=== PATIENT | female | born 1940 | race Caucasian/White ===

== ENCOUNTER → 2016-12-28 | Outpatient (CLI) | payer MEDICARE, OTHER ==
[~2016-12-28] MED LIST: ALAVERT10 MG/TAB PO; ALBUTEROL17 GM INH; ALBUTEROL20 ml INH; ALDACTAZIDE 25/1 TA1; ALDACTAZIDE 25/1 TAB; ALLEGRA ALLERG180 MG PO; ALLEGRA PO; ASPIRIN; ASPIRIN EC81 M1 PO; ASPIRIN325 M1 PO; ASPIRIN81 MG PO; B COMPLEX1 TAB PO; BENTYL20 M1; BREO ELLIPTA 11 EACH IH; CALTRATE 600 +1 EACH PO; CALTRATE 600 W-1 TAB PO; CALTRATE PLUS T1 TAB; CALTRATE-600/VI1 TA1 PO; CLARITIN; CLARITIN10 M1 PO; COLACE50 MG PO; CRESTOR PO; CRESTOR10 MG PO; FISH OIL 1,0001 CAP; FISH OIL 1,0001 CAP PO; FISH OIL 1,0001 EAC1 PO; FISH OIL 1,0001 EACH PO; FLAGYL PO; GLUCOSAMINE; GLUCOSAMINE & C1 CAP PO; GLUCOSAMINE-CHO1 TA5 PO; HYDROCHLOROTHIA25 MG PO; LECITHIN PO; LEVAQUIN PO; LISINOPRIL PO; LISINOPRIL10 MG PO; LISINOPRIL20 MG PO; LITHIUM; METANX; METANX TABLET1 TAB PO; METOPROLOL TAR25 MG PO; MULTI-VITAMIN1 EAC1 PO; MULTIVITAMIN1 UDCAP PO; MULTIVITAMINS W1 TAB; NASONEX17 GM; NATURAL VITA400 UNI3 PO; OMEGA 3 FISH OI1 CAP PO; OXYCODONE HCL5 MG PO; PRILOSEC40 MG PO; PRINIVIL5 MG PO; SELENIUM; SINGULAIR PO; SPIRIVA18 MCG INH; SUPER B COMPLEX1 CAP PO; SYMBICORT INH; TYLENOL325 M1 PO; VENTOLIN; VIT E; VITAMIN C; VITAMIN C1000 M1 PO; VITAMIN C1000 M2 PO; VITAMIN D400 UNI1 PO; VITAMIN E400 UNI2 PO; ZOCOR; [UNRECOGNIZED DRUG - OTHER] PO; [UNRECOGNIZED DRUG - REMARK]
--- NOTE | ~2016-12-28 | US37 ---
[facility] A Service of [facility] & [facility] RADIOLOGY TEXT RESULTS PATIENT: BOUCHRA HUBER LOCATION: [facility] : 38 UNIT #: [id number] AGE: [address]: Duc Reed MD SEX: F ORDER DR: [id number] [facility] [address] [place], [place] [address] [id number] O MR#: [id number] Acc #: [id number] NAME: BOUCHRA HUBER. : 1940 SEX: F STUDY DATE/TIME: 12/28/2016 15:23 UNIT: [facility] ROOM: STUDY DESCRIPTION: US Carotid W/Doppler Bilateral Attending Physician: Duc Reed M.D. Referring Physician: Duc Reed M.D. Ordering Physician: Duc Reed M.D. Primary Care Physician: Duc Reed M.D. 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 Dizziness for 2 weeks. History of previous stroke. Evaluate for carotid stenosis. FINDINGS Knight-scale carotid artery images were obtained as well as Doppler waveform, spectral analysis and color flow Doppler imaging. The examination was interpreted according to NASCET criteria. There is no hemodynamically significant stenosis in either internal carotid artery. Peak systolic velocity in the right and left internal carotid arteries was 99 cm/sec and 98 cm/sec respectively. Antegrade blood flow was seen in both vertebral arteries. Peak velocity in the right common and external carotid arteries was 67 cm/sec and 165 cm/sec respectively suggesting a degree of stenosis in the right external carotid artery. Peak velocity in the left common and external carotid arteries was 87 cm/sec and 186 cm/sec respectively suggesting a degree of stenosis in the left external carotid artery. Moderate calcified plaque was seen bilaterally. IMPRESSION 1. No hemodynamically significant stenosis in either internal carotid artery. 2. Antegrade blood flow in both vertebral arteries. 3. Elevated peak systolic velocity in the right and left external carotid arteries suggesting degrees of stenosis bilaterally. 4. Moderate calcified plaque bilaterally. Dictated by... Abilio Villa M.D. [facility] A Service of [facility] & [facility] RADIOLOGY TEXT RESULTS PATIENT: BOUCHRA HUBER LOCATION: [facility] : 38 UNIT #: [id number] AGE: [address]: Duc Reed MD SEX: F ORDER DR: THIS IS AN ELECTRONICALLY VERIFIED REPORT Abilio Villa M.D. at 12/29/2016 8:15 AM ZEV/rosio TD: 12/28/2016 18:22 JOB #: [id number] MEDICAL IMAGING REPORT Page 1 of 1 COPY
== END | disposition home or self-care (01) ==
LOC: CNIV 14:56
DX: R09.89 Other specified symptoms and signs involving the circulatory and respiratory systems (principal); G45.1 Carotid artery syndrome (hemispheric); I65.23 Occlusion and stenosis of bilateral carotid arteries
CPT/HCPCS: 93880

== ENCOUNTER → 2017-03-15 | Outpatient (CLI) | payer MEDICARE, OTHER ==
--- NOTE | ~2017-03-15 | CT57 ---
[facility] A Service of [facility] RADIOLOGY TEXT RESULTS PATIENT: BOUCHRA HUBER LOCATION: [facility] : 38 UNIT #: [id number] AGE: [address]: Gutierrez Arreola MD SEX: F ORDER DR: [id number] [id number] [facility] [place], [place] [address] [id number] O MR#: [id number] Acc #: [id number] NAME: BOUCHRA HUBER. : 1940 SEX: F STUDY DATE/TIME: 03/15/2017 12:38 UNIT: [facility] ROOM: STUDY DESCRIPTION: CT Chest Wo Cont Attending Physician: Gutierrez Arreola M.D. Referring Physician: Gutierrez Arreola M.D. Ordering Physician: Gutierrez Arreola M.D. Primary Care Physician: Duc Reed M.D. 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 Restaging. Observation for metastatic disease. Emphysema. TECHNIQUE CTA of the chest without contrast. Coronal and sagittal reconstructions were obtained. This CT exam was performed with one or more of the following radiation dose reduction techniques: automatic exposure control, adjustment of mA and/or kV according to patient size, and iterative reconstruction. COMPARISON CT chest dated 09/07/2016 and 03/02/2016. FINDINGS Patient is status post right upper lobectomy and right middle lobectomy. No recurrent or residual metastatic disease is identified. No enlarged mediastinal or hilar lymph nodes. No pericardial or pleural effusion. Thoracic aorta is normal in caliber. There is moderate coronary artery calcifications. No acute osseous abnormalities. IMPRESSION 1. Post surgical change of right upper lobectomy and right middle lobectomy. 2. No evidence of metastatic disease in the chest. [facility] A Service of [facility] RADIOLOGY TEXT RESULTS PATIENT: BOUCHRA HUBER LOCATION: [facility] : 38 UNIT #: [id number] AGE: [address]: Gutierrez Arreola MD SEX: F ORDER DR: Dictated by... Kuldip Andrews M.D. THIS IS AN ELECTRONICALLY VERIFIED REPORT Kuldip Andrews M.D. at 03/15/2017 4:56 PM LAITH/oneida TD: 03/15/2017 16:03 JOB #: [id number] MEDICAL IMAGING REPORT Page 1 of 1 COPY
== END | disposition home or self-care (01) ==
LOC: CCAT 12:21
DX: Z08 Encounter for follow-up examination after completed treatment for malignant neoplasm (principal); J43.9 Emphysema, unspecified; Z85.118 Personal history of other malignant neoplasm of bronchus and lung; Z90.2 Acquired absence of lung [part of]
CPT/HCPCS: 71250